=== PATIENT | female | born 1945 | race Caucasian/White ===

== ENCOUNTER 2023-06-23 22:49 | Inpatient (IN) | payer OTHER ==
[~2023-06-23] VITALS: Ht 172.7 cm; Wt 86.3 kg
[2023-06-23] MEDS ORDERED: SODIUM CHLORIDE 0.9% 500 ML IV ONE (23:30)
[2023-06-23] MEDS ORDERED: cefTRIAXone SOD 1,000 MG VL IV ONE (23:30)
[2023-06-23] MEDS ORDERED: dilTIAZem 25 MG/5 ML VIAL IV ONE (23:30)
[2023-06-23 23:34] LABS: Basophils # (auto) 0 10 ^3/uL (0-0.2); Basophils % (auto) 0.4 % (0.0-2.0); Eosinophils # (auto) 0.1 10 ^3/uL (0-0.8); Eosinophils % (auto) 1.4 % (0.0-7.0); Hemoglobin 14.9 g/dL (12.2-16.2); Lymphocytes # (auto) 0.2 10 ^3/uL (0.4-5.4); Lymphocytes % (auto) 2.9 % (10.0-50.0); Mean Corpuscular Hemoglobin 31.9 pg (28.0-32.0); Mean Corpuscular Hgb Conc. 34.6 g/dL (32.0-36.0); Mean Corpuscular Volume 92.2 fL (80.0-100.0); Monocytes # (auto) 0.4 10 ^3/uL (0-1.3); Monocytes % (auto) 4.5 % (0.0-12.0); Neutrophils # (auto) 7.2 10 ^3/uL (1.6-8.6); Neutrophils % (auto) 90.8 % (37.0-80.0); Nucleated Red Blood Cells % 0.1 %; Red Blood Cells 4.67 10^6/uL (4.0-5.20); Red Cell Distribution Width 13.5 % (11.8-14.3); White Blood Cell 7.9 10^3/uL (4.4-10.8)
[2023-06-23 23:51] LABS: Alanine Aminotransferase 30 U/L (7-40); Albumin 4.4 g/dL (3.2-4.8); Alkaline Phosphatase 148 U/L (46-116); Anion Gap 9 (5-15); Aspartate Aminotransferase 29 U/L (13-40); BUN/Creatinine Ratio 11.4 (10.0-20.0); Bilirubin, Total 1.1 mg/dL (0.2-1.0); Blood Urea Nitrogen 10 mg/dL (9-23); Calcium 9.3 mg/dL (8.7-10.4); Carbon Dioxide 24 mmol/L (20-30); Chloride 103 mmol/L (98-107); Glucose 163 mg/dL (74-106); Potassium 3.9 mmol/L (3.5-5.1); Sodium 136 mmol/L (136-145); Total Protein 7.3 g/dL (5.7-8.2)
[2023-06-24] VITALS (12 sets, daily range): BP systolic 123–166; BP diastolic 52–92; PULSE 82–124; RESP 14–20; TEMP 97.8–100.2; O2SAT 92–99
[2023-06-24 00:45] LABS: Urine Bacteria NONE SEEN /hpf (None Seen); Urine Blood Negative /uL (Negative); Urine Clarity HAZY (Clear); Urine Mucus FEW (None Seen); Urine Protein, UAD 1+ (Negative); Urine Specific Gravity 1.028 (1.001-1.035); Urine Urobilinogen Normal (Negative); Urine WBC 2 /hpf (0 - 5); Urine pH 5.5 (5.0-8.0)
[2023-06-24 00:46] LABS: Urine Color Amber (Yellow)
[2023-06-24] MEDS ORDERED: ACETAMINOPHEN 325 MG TAB PO ONE (01:00)
[2023-06-24] MEDS ORDERED: AZITHROMYCIN 250 MG TAB PO ONE (01:15)
[2023-06-24] MEDS ORDERED: SODIUM CHLORIDE 0.9% 1,000 ML IV ONE (01:30)
[2023-06-24] MEDS ORDERED: ONDANSETRON HCL 4 MG/2 ML VIAL IV PRN (01:30)
[2023-06-24] MEDS ORDERED: hydrALAZINE HCL 10 MG TAB PO PRN (01:30)
[2023-06-24] MEDS ORDERED: ACETAMINOPHEN 325 MG TAB PO PRN (01:30)
[2023-06-24] MEDS: LEVALBUTEROL HCL 1.25 MG/3 ML NEB NEB SCH ×5 (01:30→23:26)
[2023-06-24] MEDS ORDERED: METOPROLOL TARTRATE 1MG/1ML-5ML VIAL IV PRN (01:30)
[2023-06-24] MEDS ORDERED: HYDROcodone-ACET 5/325MG TAB PO PRN (01:30)
[2023-06-24] MEDS ORDERED: MORPHINE SULFATE INJ 2 MG/ml SYRG IV PRN (01:30)
[2023-06-24] MEDS: ENOXAPARIN SOD 100 MG/1 ML SYRINGE SC SCH ×3 (02:17→21:35)
[2023-06-24] MEDS: methylPREDNISolone SOD SUCC 40 MG/ML VL IV SCH ×2 (02:17→10:08)
[2023-06-24 05:16] LABS: Chloride 103 mmol/L (98-107); Potassium 3.9 mmol/L (3.5-5.1); Sodium 137 mmol/L (136-145)
[2023-06-24 05:17] LABS: Anion Gap 7 (5-15); Calcium 8.8 mg/dL (8.7-10.4); Carbon Dioxide 27 mmol/L (20-30)
[2023-06-24 05:22] LABS: Blood Urea Nitrogen 13 mg/dL (9-23); Glucose 155 mg/dL (74-106); Magnesium 1.2 mg/dL (1.6-2.6)
[2023-06-24 08:28] LABS: Rapid Influenza A Negative (Negative); Rapid Influenza B Negative (Negative)
[2023-06-24 08:41] LABS: COVID19 ANTIGEN SOFIA FIA NEGATIVE (NEGATIVE)
[2023-06-24] MEDS: cefTRIAXone 1GM/50ML D5W 50 ML IV SCH (10:08)
[2023-06-24] MEDS: AZITHROMYCIN 500MG/ 250ML 250 ML IV SCH (10:20)
[2023-06-24] MEDS ORDERED: BUDE1AER6 IN (15:02)
[2023-06-24] MEDS ORDERED: OMEP20TA85 PO (15:02)
[2023-06-24] MEDS ORDERED: LEVO100C3 PO (15:02)
[2023-06-24] MEDS ORDERED: MID10T GT (15:02)
[2023-06-24] MEDS ORDERED: SERT-377 PO (15:02)
[2023-06-24] MEDS: methylPREDNISolone SOD SUCC 125 MG/2 ML VL IV SCH (21:35)
[2023-06-24] MEDS: METOPROLOL TARTRATE 50 MG TAB PO SCH (21:36)
[2023-06-25] VITALS (15 sets, daily range): BP systolic 125–146; BP diastolic 59–109; PULSE 58–83; RESP 17–20; TEMP 98.1–98.5; O2SAT 86–100
[2023-06-25] MEDS: methylPREDNISolone SOD SUCC 125 MG/2 ML VL IV SCH ×3 (05:35→21:38)
[2023-06-25] MEDS: LEVALBUTEROL HCL 1.25 MG/3 ML NEB NEB SCH ×3 (06:22→18:19)
[2023-06-25 06:57] LABS: Chloride 103 mmol/L (98-107); Potassium 4.1 mmol/L (3.5-5.1); Sodium 139 mmol/L (136-145)
[2023-06-25 06:58] LABS: Anion Gap 8 (5-15); Calcium 9.1 mg/dL (8.7-10.4); Carbon Dioxide 28 mmol/L (20-30)
[2023-06-25 07:03] LABS: Blood Urea Nitrogen 17 mg/dL (9-23); Glucose 154 mg/dL (74-106)
[2023-06-25] MEDS: cefTRIAXone 1GM/50ML D5W 50 ML IV SCH (09:18)
[2023-06-25] MEDS: AZITHROMYCIN 500MG/ 250ML 250 ML IV SCH (09:24)
[2023-06-25] MEDS: ENOXAPARIN SOD 100 MG/1 ML SYRINGE SC SCH (09:24)
[2023-06-25] MEDS: METOPROLOL TARTRATE 50 MG TAB PO SCH ×2 (09:25→21:37)
[2023-06-25] MEDS ORDERED: VANCOMYCIN PER PHARMACY 0 MG IV SCH (10:30)
[2023-06-25] MEDS ORDERED: VANCOMYCIN 1GM/250ML 250 ML IV ONE (10:30)
[2023-06-26] VITALS (13 sets, daily range): BP systolic 107–140; BP diastolic 52–77; PULSE 60–72; RESP 16–20; TEMP 97.6–98.4; O2SAT 86–100
[2023-06-26] MEDS: LEVALBUTEROL HCL 1.25 MG/3 ML NEB NEB SCH ×3 (00:02→12:49)
[2023-06-26] MEDS: methylPREDNISolone SOD SUCC 125 MG/2 ML VL IV SCH ×2 (06:17→14:25)
[2023-06-26] MEDS: cefTRIAXone 1GM/50ML D5W 50 ML IV SCH (09:41)
[2023-06-26] MEDS: METOPROLOL TARTRATE 50 MG TAB PO SCH (09:42)
[2023-06-26] MEDS ORDERED: ENOXAPARIN SOD 40 MG/0.4 ML SYRINGE SC SCH (10:00)
[2023-06-26] MEDS: AZITHROMYCIN 500MG/ 250ML 250 ML IV SCH (10:35)
[2023-06-26] MEDS ORDERED: NEBU1MIS48 XX (16:32)
[2023-06-26] MEDS ORDERED: ALB5IS NEB (16:32)
[2023-06-26] MEDS ORDERED: MET50T PO (16:32)
[2023-06-26] MEDS ORDERED: METH4PAK PO (16:32)
[2023-06-26] MEDS ORDERED: DOXY-286 PO (16:32)
== END 2023-06-26 17:45 | disposition home or self-care (01) | DRG 193 ==
LOC: ER 22:51 → TELE 06-24 01:44 → TELE-CENTR 06-24 13:37
PROVIDERS: ADMIT Nurse Practitioner Family; ATTEND Nurse Practitioner Family
DX: J15.9 Unspecified bacterial pneumonia (principal); J96.21 Acute and chronic respiratory failure with hypoxia; J44.1 Chronic obstructive pulmonary disease with (acute) exacerbation; N39.0 Urinary tract infection, site not specified; J98.11 Atelectasis; I50.9 Heart failure, unspecified; E78.00 Pure hypercholesterolemia, unspecified; Z20.822 Contact with and (suspected) exposure to COVID-19; I48.0 Paroxysmal atrial fibrillation; Z90.49 Acquired absence of other specified parts of digestive tract; Z82.49 Family history of ischemic heart disease and other diseases of the circulatory system; Z85.118 Personal history of other malignant neoplasm of bronchus and lung; Z87.891 Personal history of nicotine dependence; Z88.0 Allergy status to penicillin; Z90.10 Acquired absence of unspecified breast and nipple; Z85.3 Personal history of malignant neoplasm of breast; Z92.21 Personal history of antineoplastic chemotherapy; Z99.81 Dependence on supplemental oxygen
CPT/HCPCS: 36415; 71045; 80048; 80053; 81001; 83605; 83735; 83880; 84484; 85025; 87040; 87077; 87086; 87186; 87426; 87804; 93005; 93306; 94640; G0378; J0696; J2405

== ENCOUNTER 2023-08-01 02:44 | Inpatient (IN) | payer OTHER ==
[~2023-08-01] VITALS: Ht 175.3 cm; Wt 81.3 kg
[2023-08-01] VITALS (7 sets, daily range): BP systolic 123; BP diastolic 52; PULSE 101–119; RESP 20–22; O2SAT 93–97
[~2023-08-01 02:44] MED LIST: ALB5IS NEB; BUDE1AER6 IN; DOXY-286 PO; LEVO100C3 PO; MET50T PO; METH4PAK PO; NEBU1MIS48 XX; OMEP20TA85 PO; SERT-377 PO
[2023-08-01 03:12] LABS: Basophils # (auto) 0 10 ^3/uL (0-0.2); Basophils % (auto) 0.4 % (0.0-2.0); Eosinophils # (auto) 0 10 ^3/uL (0-0.8); Eosinophils % (auto) 0.8 % (0.0-7.0); Hematocrit 40.4 % (36.0-46.0); Hemoglobin 13.4 g/dL (12.2-16.2); Lymphocytes # (auto) 0.7 10 ^3/uL (0.4-5.4); Lymphocytes % (auto) 11.2 % (10.0-50.0); Mean Corpuscular Hgb Conc. 33.1 g/dL (32.0-36.0); Mean Corpuscular Volume 90.8 fL (80.0-100.0); Monocytes # (auto) 0.4 10 ^3/uL (0-1.3); Monocytes % (auto) 5.8 % (0.0-12.0); Neutrophils # (auto) 5.3 10 ^3/uL (1.6-8.6); Neutrophils % (auto) 81.8 % (37.0-80.0); Red Blood Cells 4.45 10^6/uL (4.0-5.20); Red Cell Distribution Width 13.7 % (11.8-14.3); White Blood Cell 6.5 10^3/uL (4.4-10.8)
[2023-08-01] MEDS ORDERED: SODIUM CHLORIDE 0.9% 1,000 ML IV ONE (03:15)
[2023-08-01 03:24] LABS: Alanine Aminotransferase 12 U/L (7-40); Alkaline Phosphatase 80 U/L (46-116); Anion Gap 11 (5-15); Aspartate Aminotransferase 13 U/L (13-40); BUN/Creatinine Ratio 21.3 (10.0-20.0); Blood Urea Nitrogen 16 mg/dL (9-23); Calcium 9.2 mg/dL (8.7-10.4); Carbon Dioxide 28 mmol/L (20-30); Chloride 103 mmol/L (98-107); Glucose 136 mg/dL (74-106); Magnesium 1.6 mg/dL (1.6-2.6); Potassium 3.7 mmol/L (3.5-5.1); Sodium 142 mmol/L (136-145)
[2023-08-01 03:25] LABS: Bilirubin, Total 0.5 mg/dL (0.2-1.0); Total Protein 6.2 g/dL (5.7-8.2)
[2023-08-01] MEDS ORDERED: LORazepam 2MG/ML-1ML VIAL IV ONE (04:00)
[2023-08-01 04:09] LABS: INR 1.07 (0.9-1.15); Partial Thromboplastin Time 27.3 SEC (24.5-34.5); Prothrombin Time 11.2 sec (9.3-11.8)
[2023-08-01] MEDS ORDERED: IOHEXOL 350 MG/ML 100ML IJ ONE (04:48)
[2023-08-01] MEDS ORDERED: guaiFENesin-CODEINE Liq 5 ML UD PO ONE ×2 (06:30→09:15)
[2023-08-01] MEDS ORDERED: ONDANSETRON HCL 4 MG/2 ML VIAL IV PRN (13:30)
[2023-08-01] MEDS ORDERED: HYDROcodone-ACET 5/325MG TAB PO PRN (13:30)
[2023-08-01] MEDS ORDERED: MORPHINE SULFATE INJ 2 MG/ml SYRG IV PRN ×2 (13:30)
[2023-08-01] MEDS ORDERED: NITROGLYCERIN 0.4 MG SL TAB SL PRN (13:30)
[2023-08-01] MEDS ORDERED: ENOXAPARIN SOD 40 MG/0.4 ML SYRINGE SC SCH (13:33)
[2023-08-01] MEDS: levoFLOXacin 500MG 100 ML IV SCH (13:44)
[2023-08-01] MEDS: ALBUTEROL MEDNEB 2.5 mg/3ml NEB NEB SCH ×3 (14:32→23:04)
[2023-08-01] MEDS: IPRATROPIUM BROM 0.5 MG/2.5ML INH SOL NEB SCH ×3 (14:32→23:04)
[2023-08-02] VITALS (26 sets, daily range): BP systolic 116–136; BP diastolic 51–82; PULSE 76–114; RESP 16–22; TEMP 97.8–98.6; O2SAT 92–98
[2023-08-02] MEDS ORDERED: AMIODARONE BOLUS KIT 100 ML IV ONE (03:15)
[2023-08-02] MEDS ORDERED: AMIODARONE 450mg/250ml AE 250 ML IV SCH (03:30)
[2023-08-02] MEDS: ACETAMINOPHEN 325 MG TAB PO PRN ×2 (04:04→17:13)
[2023-08-02] MEDS ORDERED: ENOXAPARIN SOD 100 MG/1 ML SYRINGE SC ONE (05:30)
[2023-08-02 06:52] LABS: Basophils # (auto) 0 10 ^3/uL (0-0.2); Basophils % (auto) 0.4 % (0.0-2.0); Eosinophils # (auto) 0.1 10 ^3/uL (0-0.8); Eosinophils % (auto) 0.8 % (0.0-7.0); Hemoglobin 12.4 g/dL (12.2-16.2); Lymphocytes # (auto) 0.6 10 ^3/uL (0.4-5.4); Lymphocytes % (auto) 8.7 % (10.0-50.0); Mean Corpuscular Hemoglobin 30.5 pg (28.0-32.0); Mean Corpuscular Hgb Conc. 33.4 g/dL (32.0-36.0); Mean Corpuscular Volume 91.4 fL (80.0-100.0); Monocytes # (auto) 0.4 10 ^3/uL (0-1.3); Neutrophils % (auto) 85.1 % (37.0-80.0); Nucleated Red Blood Cells % 0.1 %; Red Blood Cells 4.05 10^6/uL (4.0-5.20); Red Cell Distribution Width 13.4 % (11.8-14.3)
[2023-08-02] MEDS: IPRATROPIUM BROM 0.5 MG/2.5ML INH SOL NEB SCH ×5 (06:58→22:06)
[2023-08-02] MEDS: ALBUTEROL MEDNEB 2.5 mg/3ml NEB NEB SCH ×5 (06:58→22:06)
[2023-08-02 07:06] LABS: Alanine Aminotransferase 10 U/L (7-40); Alkaline Phosphatase 65 U/L (46-116); Anion Gap 6 (5-15); BUN/Creatinine Ratio 15.4 (10.0-20.0); Blood Urea Nitrogen 10 mg/dL (9-23); Calcium 8.8 mg/dL (8.7-10.4); Carbon Dioxide 30 mmol/L (20-30); Chloride 106 mmol/L (98-107); Glucose 124 mg/dL (74-106); Sodium 142 mmol/L (136-145)
[2023-08-02 07:07] LABS: Albumin 3.5 g/dL (3.2-4.8); Aspartate Aminotransferase 14 U/L (13-40); Total Protein 5.5 g/dL (5.7-8.2)
[2023-08-02 07:23] LABS: Bilirubin, Total 0.3 mg/dL (0.2-1.0)
[2023-08-02] MEDS: AMIODARONE 450mg/250ml AE 250 ML IV SCH (10:36)
[2023-08-02] MEDS: levoFLOXacin 500MG 100 ML IV SCH (10:41)
[2023-08-02 11:19] LABS: Body Fluid Polymorphonuclear 3 % (0-25)
[2023-08-02 11:54] LABS: Body Fluid White Blood Cells 780 CUMM (0-200)
[2023-08-02 11:55] LABS: Body Fluid Red Blood Cells 410 CUMM (0-2000)
[2023-08-02] MEDS ORDERED: FUROSEMIDE 100 MG/10ML VIAL IV ONE (16:00)
[2023-08-02] MEDS ORDERED: DIGOXIN (250MCG/ML) 2 ML AMPULE IV ONE (16:00)
[2023-08-02] MEDS ORDERED: HYALURONIDASE 150 UNIT/1 ML SUBCUT ONE (21:15)
[2023-08-02] MEDS: ENOXAPARIN SOD 80 MG/0.8ML SYRINGE SC SCH (21:50)
[2023-08-03] VITALS (19 sets, daily range): BP systolic 111–137; BP diastolic 61–68; PULSE 81–145; RESP 16–22; TEMP 97.7–98.9; O2SAT 93–100
[2023-08-03] MEDS: AMIODARONE 450mg/250ml AE 250 ML IV SCH ×3 (01:55→16:30)
[2023-08-03] MEDS: ALBUTEROL MEDNEB 2.5 mg/3ml NEB NEB SCH ×6 (02:35→22:02)
[2023-08-03] MEDS: IPRATROPIUM BROM 0.5 MG/2.5ML INH SOL NEB SCH ×6 (02:35→22:02)
[2023-08-03] MEDS: levoFLOXacin 500MG 100 ML IV SCH (10:00)
[2023-08-03] MEDS: ENOXAPARIN SOD 80 MG/0.8ML SYRINGE SC SCH ×2 (10:00→21:49)
[2023-08-03 14:06] LABS: Protein, Body Fluid 3.4 g/dL (.)
[2023-08-03] MEDS: guaiFENesin 200 MG/10 ML UD PO PRN ×2 (15:52→21:49)
[2023-08-03] MEDS: MELATONIN 5 MG TAB PO PRN (21:49)
[2023-08-04] VITALS (18 sets, daily range): BP systolic 106–139; BP diastolic 56–73; PULSE 82–115; RESP 16–20; TEMP 97.3–98.4; O2SAT 93–100
[2023-08-04] MEDS: AMIODARONE 450mg/250ml AE 250 ML IV SCH ×2 (06:46→21:30)
[2023-08-04] MEDS: IPRATROPIUM BROM 0.5 MG/2.5ML INH SOL NEB SCH ×5 (06:51→22:02)
[2023-08-04] MEDS: ALBUTEROL MEDNEB 2.5 mg/3ml NEB NEB SCH ×5 (06:51→22:02)
[2023-08-04] MEDS: levoFLOXacin 500MG 100 ML IV SCH (09:56)
[2023-08-04] MEDS: guaiFENesin 200 MG/10 ML UD PO PRN (09:57)
[2023-08-04] MEDS: ENOXAPARIN SOD 80 MG/0.8ML SYRINGE SC SCH ×2 (09:57→21:53)
[2023-08-04] MEDS: MELATONIN 5 MG TAB PO PRN (21:52)
[2023-08-05] VITALS (22 sets, daily range): BP systolic 104–164; BP diastolic 36–95; PULSE 83–107; RESP 16–22; TEMP 97.3–98.3; O2SAT 93–99
[2023-08-05] MEDS: AMIODARONE 450mg/250ml AE 250 ML IV SCH ×2 (02:44→15:30)
[2023-08-05] MEDS: IPRATROPIUM BROM 0.5 MG/2.5ML INH SOL NEB SCH ×6 (03:25→22:07)
[2023-08-05] MEDS: ALBUTEROL MEDNEB 2.5 mg/3ml NEB NEB SCH ×6 (03:25→22:07)
[2023-08-05] MEDS: levoFLOXacin 500MG 100 ML IV SCH (10:00)
[2023-08-05] MEDS: HYDROcodone-ACET 5/325MG TAB PO PRN ×2 (12:26→19:58)
[2023-08-05] MEDS: ENOXAPARIN SOD 80 MG/0.8ML SYRINGE SC SCH ×2 (12:26→21:33)
[2023-08-05] MEDS: MELATONIN 5 MG TAB PO PRN (21:34)
[2023-08-05] MEDS: AMIODARONE HCL 200 MG TAB PO SCH (21:34)
[2023-08-06] VITALS (11 sets, daily range): BP systolic 100–125; BP diastolic 41–53; PULSE 64–95; RESP 14–18; TEMP 97.9–98.3; O2SAT 93–98
[2023-08-06] MEDS: ALBUTEROL MEDNEB 2.5 mg/3ml NEB NEB SCH ×3 (06:28→14:20)
[2023-08-06] MEDS: IPRATROPIUM BROM 0.5 MG/2.5ML INH SOL NEB SCH ×3 (06:28→14:20)
[2023-08-06] MEDS: HYDROcodone-ACET 5/325MG TAB PO PRN (06:56)
[2023-08-06] MEDS: levoFLOXacin 500MG 100 ML IV SCH (10:00)
[2023-08-06] MEDS: ENOXAPARIN SOD 80 MG/0.8ML SYRINGE SC SCH (10:05)
[2023-08-06] MEDS: AMIODARONE HCL 200 MG TAB PO SCH (10:05)
[2023-08-06] MEDS ORDERED: DIGOXIN 0.125 MG TAB PO SCH (11:45)
[2023-08-06 12:39] LABS: COVID19 ANTIGEN SOFIA FIA NEGATIVE (NEGATIVE)
[2023-08-06] MEDS ORDERED: POLYETHYLENE GLYCOL 17 GM PWDR PO ONE (12:45)
[2023-08-06] MEDS ORDERED: APIXABAN 5 MG TAB PO SCH (19:00)
[2023-08-06] MEDS ORDERED: DOCUSATE SOD 100 MG CAP PO SCH (22:00)
[2023-08-07] MEDS ORDERED: LEVOTHYROXINE SODIUM 100 MCG TAB PO SCH (07:00)
[2023-08-07] MEDS ORDERED: PANTOPRAZOLE 40 MG TAB PO SCH (10:00)
== END 2023-08-06 18:30 | DRG 177 ==
LOC: EDBD 02:44 → ER 02:44 → TELE 13:26 → TELE-WESTW 22:34
PROVIDERS: ADMIT Internal Medicine; ATTEND Internal Medicine
PROC: 0W993ZZ Drainage of Right Pleural Cavity, Percutaneous Approach (ICD-10-PCS; principal; 2023-08-02)
PROC: 0W993ZZ Drainage of Right Pleural Cavity, Percutaneous Approach (ICD-10-PCS; 2023-08-05)
DX: J15.8 Pneumonia due to other specified bacteria (principal); J96.21 Acute and chronic respiratory failure with hypoxia; J44.0 Chronic obstructive pulmonary disease with (acute) lower respiratory infection; J90 Pleural effusion, not elsewhere classified; J44.1 Chronic obstructive pulmonary disease with (acute) exacerbation; C34.91 Malignant neoplasm of unspecified part of right bronchus or lung; J98.11 Atelectasis; I48.0 Paroxysmal atrial fibrillation; E27.8 Other specified disorders of adrenal gland; K59.00 Constipation, unspecified; E03.9 Hypothyroidism, unspecified; J43.8 Other emphysema; K21.9 Gastro-esophageal reflux disease without esophagitis; Z80.0 Family history of malignant neoplasm of digestive organs; Z80.3 Family history of malignant neoplasm of breast; Z92.21 Personal history of antineoplastic chemotherapy; Z92.3 Personal history of irradiation; Z82.49 Family history of ischemic heart disease and other diseases of the circulatory system; Z85.118 Personal history of other malignant neoplasm of bronchus and lung; Z87.891 Personal history of nicotine dependence; Z88.0 Allergy status to penicillin; Z90.710 Acquired absence of both cervix and uterus; Z99.81 Dependence on supplemental oxygen; Z90.49 Acquired absence of other specified parts of digestive tract
CPT/HCPCS: 32555; 36415; 71045; 71275; 76604; 76942; 80053; 83735; 83880; 83986; 84484; 85025; 85610; 85730; 87070; 87081; 87205; 87426; 89051; 93005; 94640; 97110; 97116; 97163; 97530; G0378; J1956; J3470